=== PATIENT | male | born 1945 | race Caucasian/White ===

== ENCOUNTER 2019-07-17 12:10 | Outpatient (CLI) | payer OTHER, SELFPAY ==
--- NOTE | 2019-07-17 12:45 | USCV_ITS ---
Anderson Calvert Age: 73 Gender: M : 1945 Exam Date: 07/17/2019 12:39 Ordering Phys: Haroon Herr MD ([email or web address]) Technologist: Marisa Granda Exam Location: [facility] Indication: CHEST PAIN BP: 134 / 66 HR: 53 Rhythm: Sinus Technical Quality: Adequate MEASUREMENTS (Male / Female) Normal Values 2D ECHO LV Diastolic Diameter PLAX 3.8 cm 4.2 - 5.9 / 3.9 - 5.3 cm LV Systolic Diameter PLAX 2.6 cm LV Chamber Size 3.4 cm IVS Diastolic Thickness 1.3 cm 0.6 - 1.0 / 0.6 - 0.9 cm IVS Systolic Thickness 1.7 cm LVPW Diastolic Thickness 1.5 cm 0.6 - 1.0 / 0.6 - 0.9 cm LVPW Systolic Thickness 1.9 cm RV Chamber Size 3.6 cm LVOT Diameter 2.1 cm LV Ejection Fraction 2D Teich 57.3 % LV Ejection Fraction MOD 2C 38.2 % LV Ejection Fraction 2C AL 38.3 % LA Diameter 4.7 cm LA Width 3.7 cm LA Height 4.6 cm RA Width 2.3 cm RA Height 2.7 cm Aorta at Sinotubular Diameter 2.9 cm M-MODE LV Diastolic Diameter MM 6.2 cm 4.2 - 5.9 / 3.9 - 5.3 cm LV Systolic Diameter MM 3.8 cm LV Ejection Fraction MM Teich 68.7 % IVS Diastolic Thickness MM 0.8 cm 0.6 - 1.0 / 0.6 - 0.9 cm IVS Systolic Thickness MM 1.0 cm LVPW Diastolic Thickness MM 1.0 cm 0.6 - 1.0 / 0.6 - 0.9 cm LVPW Systolic Thickness MM 1.3 cm Aortic Annulus Diameter 3.6 cm LA Ao Ratio MM 1.3 MV E Point Septal Separation 0.8 cm DOPPLER AV Peak Velocity 143.0 cm/s LVOT Peak Velocity 127.0 cm/s AV Area Cont Eq vti 2.9 cm squared AV Area Cont Eq pk 3.0 cm squared MV Area PHT 2.5 cm squared Mitral E to A Ratio 1.0 MV E' Velocity 11.0 cm/s Mitral E to MV E' Ratio 10.0 Mitral E to LV E' Lateral Ratio 8.6 Mitral E to LV E' Septal Ratio 12.1 TR Peak Velocity 272.0 cm/s TR Peak Gradient 29.7 mmHg TR Mean Velocity 184.4 cm/s TR Mean Gradient 18.2 mmHg TR Velocity Time Integral 85.3 cm TV Peak E Velocity 86.0 cm/s Right Atrial Pressure 3.0 mmHg Pulmonary Artery Systolic Pressu 32.6 mmHg PV Peak Velocity 96.0 cm/s RV Acceleration Time 0.2 s RV Ejection Time 0.4 s RV AcT/ET 0.5 FINDINGS Left Ventricle Normal left ventricular cavity size. Normal left ventricular systolic function. No regional wall motion abnormalities. Left ventricular ejection fraction is estimated at 68 %. Grade II/IV diastolic dysfunction, moderately elevated filling pressures. Right Ventricle The right ventricle is normal in size and function. Right Atrium The right atrium is normal in size. Left Atrium The left atrium is normal in size. Mitral Valve Mildly thickened mitral valve. No mitral valve stenosis. Trace mitral valve regurgitation. Aortic Valve Aortic valve sclerosis without stenosis or regurgitation. Tricuspid Valve Structurally normal tricuspid valve without significant stenosis or regurgitation. Pulmonary artery systolic pressure is normal. Pulmonic Valve Structurally normal pulmonic valve without significant stenosis. There is no pulmonic regurgitation. Pericardium Normal pericardium without effusion. Aorta Normal ascending aorta dimension. CONCLUSIONS 1-Normal left ventricular cavity size. Normal left ventricular systolic function. No regional wall motion abnormalities. Left ventricular ejection fraction is estimated at 68 %. Grade II/IV diastolic dysfunction, moderately elevated filling pressures. 2-There is no pericardial effusion. 3-No significant valve abnormalities. 4-Pulmonary artery systolic pressure is within normal limits. 5-There are no prior echocardiogram studies to compare. Haroon Herr MD (Electronically Signed) Final Date: 18 July 2019 17:33 S
== END 2019-07-17 12:11 | disposition home or self-care (01) ==
LOC: US 12:16
PROVIDERS: Family Provider Internal Medicine; PCP Internal Medicine; Visit Provider Internal Medicine Cardiovascular Disease
DX: R06.02 Shortness of breath (principal); R07.9 Chest pain, unspecified; I10 Essential (primary) hypertension
CPT/HCPCS: 93306

== ENCOUNTER 2019-07-27 08:12 | Outpatient (CLI) | payer OTHER, SELFPAY ==
[2019-07-27 08:28] VITALS: BMI 29.2
--- NOTE | 2019-07-27 08:31 | NMCV_ITS ---
NM beba perf SPECT r/s* [id number] Anderson Calvert Age: 73 Gender: M : 1945 Exam Date: 07/27/2019 09:25 Ordering Phys: Haroon Herr MD ([email or web address]) Technologist: LEANNA Mccloud Exam Location: [facility] Indications: ABNORMAL EKG STRESS TEST [facility] IMAGE PROTOCOL Rest/Stress 1 Exercise Day Radiopharmaceutical Dose (mCi) Administration Site Administered by Rest: Tc-99m 10.9 IV LEANNA Mccloud Sestamibi Stress:Tc-99m 32.5 IV LEANNA Brody Sestamibi Rest: 27-Jul-2019 60 Discovery 630 Stress: 27-Jul-2019 30 Discovery 630 Radiopharmaceutical was injected at 86 % maximum heart rate. Images obtained in supine and prone position. SPECT RESULTS Technical Quality: Excellent Raw Data Analysis: Normal Image Corrections: No attenuation or motion correction applied Summed Stress Score: 4 Summed Rest Score: 8 Summed Difference Score: 1 PERFUSION FINDINGS SPECT images demonstrate homogeneous tracer distribution throughout the myocardium. FUNCTIONAL RESULTS (calculated via Gated SPECT) Stress Image LV EF (%): 62 Stress EDV (mL):90 TID: 1.23 Stress ESV (mL):34 Rest Image LV EF (%): 60 FUNCTIONAL FINDINGS: There is normal left ventricular systolic function. IMPRESSIONS Myocardial perfusion imaging is normal and low probability for obstructive coronary disease. TID ratio is elevated could be due to left ventricle hypertrophy/subendocardial ischemia in the absence of other parameters. EKG segment will be documented separately.. Haroon Herr MD (Electronically Signed) Final Date: 28 July 2019 11:45 S
--- NOTE | 2019-07-27 08:31 | ECG_ITS ---
NAME OF STUDY: EXERCISE SESTAMIBI STRESS TEST INDICATION: Abnormal EKG; Essential HTN EXERCISE DATA: The patient was exercised by Lazarus protocol. Baseline heart rate was 58 beats per minute. Baseline blood pressure was 165/93 millimeters of mercury. Target heart rate was 145 beats per minute. Maximum heart rate achieved was 135, which was 93 % of the target heart rate. Maximum blood pressure was 202/105 millimeters of mercury. Total exercise time was 5 minutes 30 seconds. Maximum METs achieved was 7, maximum VO2 was 24.5. The reason for ending the test was maximum effort achieved. The patient complained of shortness of breath during the stress test, which then resolved at the end of the test. ELECTROCARDIOGRAM: BASELINE: Showed sinus bradycardia, left axis, interventricular conduction delay, possible lead placement with poor R wave progression in the anterolateral leads EXERCISE: At the peak exercise level, No significant ST-T changes suggestive of ischemia noted. RECOVERY: During the recovery period, heart rate dropped appropriately. No significant ST-T changes in the recovery suggestive of ischemia noted. CONCLUSION: 1. Exercise capacity fair. 2. Heart rate response was appropriate. 3. Blood pressure response was hypertensive. 4. Symptoms not suggestive of ischemia. 5. Electrocardiogram portion of the stress test was not suggestive of ischemia. 6. Nuclear scan will be documented separately. Please note that due to underachievement of METs specificity and sensitivity of the EKG portion of the stress test will be low Electronically Signed On 08-01-2019 21:41:29 [employer] by Haroon Herr M.D. [email or web address]
--- NOTE | 2019-07-27 09:59 | SUR.PREOP ---
Patient reports no pain or discomfort prior to the start of the procedure.
[2019-07-27 10:22] VITALS: BP 148/89; PULSE 70
== END 2019-07-27 08:13 | disposition home or self-care (01) ==
LOC: CDL 08:13
PROVIDERS: Family Provider Internal Medicine; PCP Internal Medicine; Visit Provider Internal Medicine Cardiovascular Disease
DX: I10 Essential (primary) hypertension (principal); R94.31 Abnormal electrocardiogram [ECG] [EKG]
CPT/HCPCS: 78452; 93017; A9500

== ENCOUNTER → 2020-07-21 10:51 | Outpatient (BNVA) | payer OTHER, SELFPAY | PROVIDERS: Family Provider Internal Medicine; PCP Family Medicine; Referring Provider Family Medicine; Visit Provider Urology | DX: N40.0 Benign prostatic hyperplasia without lower urinary tract symptoms (principal); Q64.6 Congenital diverticulum of bladder; Q60.0 Renal agenesis, unilateral; N40.1 Benign prostatic hyperplasia with lower urinary tract symptoms | CPT/HCPCS: 81003 ==

== ENCOUNTER → 2020-08-07 09:04 | Outpatient (BNVA) | payer OTHER, SELFPAY | PROVIDERS: Family Provider Internal Medicine; PCP Family Medicine; Referring Provider Family Medicine; Visit Provider Specialist | DX: M25.511 Pain in right shoulder (principal) | CPT/HCPCS: 73030 ==

== ENCOUNTER → 2021-08-04 15:10 | Outpatient (BNVA) | payer OTHER, SELFPAY | PROVIDERS: Family Provider Internal Medicine; PCP Nurse Practitioner Family; Visit Provider Nurse Practitioner Family | DX: R05.9 Cough, unspecified (principal); Z20.822 Contact with and (suspected) exposure to COVID-19 | CPT/HCPCS: 87635 ==

== ENCOUNTER → 2021-12-02 15:00 | Outpatient (BNVA) | payer OTHER, SELFPAY | PROVIDERS: Family Provider Internal Medicine; PCP Family Medicine; Visit Provider Internal Medicine | DX: R06.00 Dyspnea, unspecified (principal); E78.5 Hyperlipidemia, unspecified; I10 Essential (primary) hypertension | CPT/HCPCS: 99213; 99214 ==

== ENCOUNTER 2022-01-22 08:41 | Outpatient (CLI) | payer OTHER, SELFPAY ==
--- NOTE | 2022-01-22 09:30 | USCV_ITS ---
Anderson Calvert Age: 76 Gender: M : 1945 Exam Date: 01/22/2022 09:03 Ordering Phys: Ant Brantley M.D ([email or web address]) Technologist: Frieda Sharma Exam Location: [facility] [place] Indication: HTN, SOB BP: 130 / 88 HR: 54 Rhythm: Sinus Technical Quality: Adequate MEASUREMENTS (Male / Female) Normal Values 2D ECHO LV Diastolic Diameter PLAX 4.0 cm 4.2 - 5.9 / 3.9 - 5.3 cm LV Systolic Diameter PLAX 2.4 cm IVS Diastolic Thickness 1.3 cm 0.6 - 1.0 / 0.6 - 0.9 cm IVS Systolic Thickness 1.6 cm LVPW Diastolic Thickness 1.1 cm 0.6 - 1.0 / 0.6 - 0.9 cm LVPW Systolic Thickness 2.1 cm LVOT Diameter 2.1 cm LV Ejection Fraction 2D Teich 71.7 % LV Ejection Fraction MOD 2C 69.1 % LV Ejection Fraction 2C AL 70.9 % LA Diameter 3.4 cm LA Width 2.3 cm LA Height 4.6 cm RA Width 2.1 cm RA Height 3.6 cm Aorta at Sinotubular Diameter 2.9 cm M-MODE MV E Point Septal Separation 0.8 cm DOPPLER AV Peak Velocity 104.0 cm/s LVOT Peak Velocity 96.0 cm/s AV Area Cont Eq vti 3.3 cm squared AV Area Cont Eq pk 3.1 cm squared MV Peak Velocity 93.0 cm/s MV Area PHT 2.6 cm squared Mitral E to A Ratio 0.7 MV E' Velocity 38.5 cm/s Mitral E to MV E' Ratio 10.8 Mitral E to LV E' Lateral Ratio 7.8 Mitral E to LV E' Septal Ratio 18.0 TR Peak Velocity 173.0 cm/s TR Peak Gradient 12.0 mmHg Right Atrial Pressure 3.0 mmHg Pulmonary Artery Systolic Pressu 15.0 mmHg PV Peak Velocity 41.0 cm/s RV Acceleration Time 0.1 s RV Ejection Time 0.3 s RV AcT/ET 0.3 FINDINGS Left Ventricle Normal left ventricular size. LV systolic function is normal with EF of 55-60%. No regional wall motion abnormalities. Grade 1 diastolic dysfunction. Right Ventricle The right ventricle is normal in size and function. Right Atrium The right atrium is normal in size. Left Atrium The left atrium is normal in size. Mitral Valve Structurally normal mitral valve without significant stenosis or prolapse. There is mild mitral regurgitation. Aortic Valve Structurally normal aortic valve without significant sclerosis or stenosis. There is no aortic regurgitation. Tricuspid Valve Trace tricuspid regurgitation. Insufficient TR jet to calculate RVSP. Pulmonic Valve Not well-visualized Pericardium Normal pericardium without effusion. Aorta Normal ascending aorta dimension. IVC CONCLUSIONS LV systolic function is normal with EF of 55 to 60%. Grade 1 diastolic dysfunction. Mild mitral regurgitation. Trace tricuspid regurgitation. Compared to prior echocardiogram from 07/17/2019, no significant changes are seen Ant Brantley MD (Electronically Signed) Final Date: 31 January 2022 12:30 S
== END 2022-01-22 08:42 | disposition home or self-care (01) ==
LOC: RAD 08:42
PROVIDERS: Family Provider Internal Medicine; PCP Family Medicine; Visit Provider Internal Medicine
DX: I10 Essential (primary) hypertension (principal); R06.02 Shortness of breath; I08.1 Rheumatic disorders of both mitral and tricuspid valves
CPT/HCPCS: 93306

== ENCOUNTER → 2022-03-04 09:52 | Outpatient (BNVA) | payer OTHER, SELFPAY | PROVIDERS: Family Provider Internal Medicine; PCP Family Medicine; Visit Provider Internal Medicine Pulmonary Disease | DX: R06.00 Dyspnea, unspecified (principal); R06.2 Wheezing; Z87.891 Personal history of nicotine dependence; Z57.9 Occupational exposure to unspecified risk factor | CPT/HCPCS: 99204 ==

== ENCOUNTER 2022-04-20 07:50 | Outpatient (CLI) | payer OTHER, SELFPAY ==
[2022-04-20 08:23] LABS: Basophils % 0.5 %; Eosinophils # 0.3 10^3/uL (0.0-0.8); Eosinophils % 4.3 %; Hematocrit 46.4 % (42.0-52.0); Hemoglobin 15.5 g/dL (11.7-16.6); Lymphocytes # 1.4 10^3/uL (0.8-4.8); Lymphocytes % 22.3 %; Mean Corpuscular HGB Conc 33.4 g/dL (30.0-36.0); Mean Corpuscular Hemoglobin 31.1 pg (28.0-34.0); Mean Platelet Volume 9.6 fL (7.4-10.4); Monocytes # 0.4 10^3/uL (0.2-0.9); Monocytes % 6.4 %; Neutrophils # 4.01 10^3/uL (1.8-7.7); Neutrophils % 66.2 %; Nucleated Red Blood Cells % 0 %; Platelet Count 183 10^3/cmm (130-400); Red Blood Count 4.99 10^6/uL (4.1-5.3); Red Cell Distribution Width 12.9 % (12.1-15.1); White Blood Count 6.1 10^3/uL (4.0-10.0)
[2022-04-20 08:41] LABS: Alanine Aminotransferase 18 U/L (0-41); Alkaline Phosphatase 94 U/L (40-130); Anion Gap 13.6 (5-19); Aspartate Amino Transferase 26 U/L (0-40); Blood Urea Nitrogen 29 mg/dL (8-23); Calcium 9.7 mg/dL (8.5-10.5); Carbon Dioxide 27 mmol/L (22-29); Chloride 102 mmol/L (98-107); Globulin 3.1 g/dL (1.3-4.6); Glucose 78 mg/dL (65-115); Osmolality Calculated 293 mOsm/kg (285-295); Potassium 3.6 mmol/L (3.5-5.1); Sodium 139 mmol/L (136-145); Total Bilirubin 0.9 mg/dL (0.15-1.2); Total Protein 7.1 g/dL (6.6-8.7)
[2022-04-21 17:28] LABS: Immunoglobulin E 333 kU/L (<OR=114)
[2022-04-22 20:32] LABS: Aspergillus Fumigatus, Igg Ab, 17.9 mg/L (<=102)
[2022-04-23 15:38] LABS: Alternaria Alternata (M6) Ige <0.10 kU/L; Alternaria Class 0; Bermuda Class 0; Bermuda Grass (G2) Ige <0.10 kU/L; Cat Dander (E1) Ige <0.10 kU/L; Cat Dander Class 0; Common Ragweed (Short) (W1) Ig <0.10 kU/L; D. Farinae Class 0; Dermatophagoides Class 0; Dermatophagoides Farinae (D2) <0.10 kU/L; Dermatophagoides Pteronyssinus <0.10 kU/L; Dog Dander (E5) Ige <0.10 kU/L; Dog Dander Class 0; Elm (T8) Ige 0.12 kU/L; Elm Class 0/1; English Plantain (W9) Ige <0.10 kU/L; English Plantain Class 0; House Dust (Greer) (H1) Ige <0.10 kU/L; House Dust (Hollister- Stier) <0.10 kU/L; House Dust Class 0; Immunoglobulin E 329 kU/L (<OR=114); Johnson Grass (G10) Ige <0.10 kU/L; Johnson Grass Cl 0; June Grass Class 0; June Grass(Kentucky Blue) (G8) <0.10 kU/L; Lamb'S Quarters (Goose Foot) 0.12 kU/L; Lamb'S Quarters Class 0/1; Maple (Box Elder) (T1) Ige <0.10 kU/L; Maple Class 0; Meadow Fescue (G4) Ige <0.10 kU/L; Meadow Fescue Class 0; Mucor Racemosus Class 0; Oak (T7) Ige <0.10 kU/L; Oak Class 0; Orchard Grass (Cocksfoot) (G3) <0.10 kU/L; Penicillium Class 0; Penicillium Notatum (M1) Ige <0.10 kU/L; Perennial Rye Grass (G5) Ige <0.10 kU/L; Perennial Rye Grass Class 0; Ragweeed Class 0; Rough Marsh Elder (W16) Ige 0.12 kU/L; Rough Marsh Elder Class 0/1; Sweet Vernal Class 0; Sweet Vernal Grass (G1) Ige <0.10 kU/L; Timothy Grass (G6) Ige <0.10 kU/L; Timothy Grass Class 0
== END 2022-04-20 07:51 | disposition home or self-care (01) ==
PROVIDERS: PCP Family Medicine; Visit Provider Internal Medicine Pulmonary Disease
DX: R06.00 Dyspnea, unspecified (principal); R06.2 Wheezing; R06.02 Shortness of breath
CPT/HCPCS: 36415; 80053; 82785; 85025; 86003; 94010; 94618; 94726; 94729

== ENCOUNTER → 2022-08-09 15:19 | Outpatient (BNVA) | payer OTHER, SELFPAY | PROVIDERS: PCP Family Medicine; Visit Provider Internal Medicine Pulmonary Disease | DX: J44.9 Chronic obstructive pulmonary disease, unspecified (principal); R06.00 Dyspnea, unspecified; R94.2 Abnormal results of pulmonary function studies; J45.909 Unspecified asthma, uncomplicated; J82.83 Eosinophilic asthma; Z87.891 Personal history of nicotine dependence; Z57.9 Occupational exposure to unspecified risk factor | CPT/HCPCS: 99214 ==

== ENCOUNTER → 2023-05-09 12:43 | Outpatient (BNVA) | payer OTHER, SELFPAY | PROVIDERS: PCP Family Medicine; Visit Provider Internal Medicine Pulmonary Disease | DX: J82.83 Eosinophilic asthma (principal); R06.2 Wheezing; R94.2 Abnormal results of pulmonary function studies; J42 Unspecified chronic bronchitis | CPT/HCPCS: 99214 ==

== ENCOUNTER → 2023-06-21 15:21 | Outpatient (BNVA) | payer OTHER, SELFPAY | PROVIDERS: PCP Family Medicine; Visit Provider Dermatology | DX: D48.5 Neoplasm of uncertain behavior of skin (principal); L82.0 Inflamed seborrheic keratosis; D18.01 Hemangioma of skin and subcutaneous tissue; L81.4 Other melanin hyperpigmentation; L57.0 Actinic keratosis | CPT/HCPCS: 11102; 17000; 17110; 99203 ==

== ENCOUNTER → 2023-07-12 09:16 | Outpatient (BNVA) | payer OTHER, SELFPAY | PROVIDERS: PCP Family Medicine; Visit Provider Dermatology | DX: C44.519 Basal cell carcinoma of skin of other part of trunk (principal); L82.0 Inflamed seborrheic keratosis | CPT/HCPCS: 12032; 17110; 17313 ==

== ENCOUNTER → 2023-08-03 09:48 | Outpatient (BNVA) | payer OTHER, SELFPAY | PROVIDERS: PCP Family Medicine; Visit Provider Dermatology | DX: D48.5 Neoplasm of uncertain behavior of skin (principal) | CPT/HCPCS: 11403; 12034 ==

== ENCOUNTER → 2023-08-17 09:37 | Outpatient (BNVA) | payer OTHER, SELFPAY | PROVIDERS: PCP Family Medicine; Visit Provider Dermatology | DX: Z48.02 Encounter for removal of sutures (principal) | CPT/HCPCS: 99212 ==

== ENCOUNTER → 2024-02-20 08:44 | Outpatient (BNVA) | payer OTHER, SELFPAY | PROVIDERS: PCP Family Medicine; Visit Provider Nurse Practitioner Family | DX: L57.0 Actinic keratosis (principal); L82.1 Other seborrheic keratosis; D18.01 Hemangioma of skin and subcutaneous tissue; Z85.828 Personal history of other malignant neoplasm of skin | CPT/HCPCS: 17000; 99213 ==

== ENCOUNTER 2024-04-09 13:17 | Outpatient (CLI) | payer OTHER, SELFPAY ==
[2024-04-09 13:54] LABS: Basophils % 0.6 %; Eosinophils # 0.3 10^3/uL (0.0-0.8); Eosinophils % 4.1 %; Hematocrit 46.4 % (37-53); Lymphocytes # 1.4 10^3/uL (0.8-4.8); Lymphocytes % 19.9 %; Mean Corpuscular HGB Conc 33.6 g/dL (30-55); Mean Corpuscular Hemoglobin 31.1 pg (27-33); Mean Corpuscular Volume 92.4 fl (82-101); Mean Platelet Volume 9.7 fL (7.4-10.4); Monocytes # 0.3 10^3/uL (0.2-0.9); Monocytes % 4.6 %; Neutrophils # 4.96 10^3/uL (1.8-7.7); Neutrophils % 70.5 %; Nucleated Red Blood Cells % 0 %; Platelet Count 209 10^3/cmm (157-399); Red Blood Count 5.02 10^6/uL (3.85-5.65); Red Cell Distribution Width 13.2 % (12.1-15.1); White Blood Count 7.03 10^3/uL (3.29-11.43)
[2024-04-09 14:14] LABS: Albumin Level 3.8 g/dL (3.5-5.2); Blood Urea Nitrogen 23 mg/dL (8-23); Calcium 8.8 mg/dL (8.5-10.5); Calcium 8.9 mg/dL (8.5-10.5); Carbon Dioxide 24 mmol/L (22-29); Chloride 104 mmol/L (98-107); Glucose 144 mg/dL (65-115); Phosphorus 2.6 mg/dL (2.5-4.5); Sodium 137 mmol/L (136-145)
[2024-04-09 14:15] LABS: Creatinine Urine, Random 86 mg/dL (39-259); Microalbum Creatinine Ratio Ur 12 mg/dL (0-20); Microalbumin Random Urine 1 ug/dL (0-20)
[2024-04-09 14:16] LABS: Anion Gap 13.6 (5-19); Potassium 4.6 mmol/L (3.5-5.1)
[2024-04-09 14:21] LABS: Parathyroid Hormone 77.8 pg/mL (15-65)
[2024-04-09 17:00] LABS: 25 Hydroxy Vitamin D 23 ng/mL (30-100)
== END 2024-04-09 13:18 | disposition home or self-care (01) ==
PROVIDERS: PCP Family Medicine; Visit Provider Registered Nurse
DX: N18.2 Chronic kidney disease, stage 2 (mild) (principal)
CPT/HCPCS: 36415; 80069; 82044; 82306; 82310; 83970; 85025

== ENCOUNTER → 2024-08-20 10:41 | Outpatient (BNVA) | payer OTHER, SELFPAY | PROVIDERS: PCP Family Medicine; Visit Provider Nurse Practitioner Family | DX: L82.1 Other seborrheic keratosis (principal); D22.5 Melanocytic nevi of trunk; Z08 Encounter for follow-up examination after completed treatment for malignant neoplasm; Z85.828 Personal history of other malignant neoplasm of skin; L57.0 Actinic keratosis | CPT/HCPCS: 17000; 99213 ==

== ENCOUNTER 2024-12-24 08:23 | Oncology outpatient (recurring) (ONCR) | payer OTHER, SELFPAY | END 2025-01-10 23:59 | disposition home or self-care (01) | PROVIDERS: PCP Family Medicine; Visit Provider Internal Medicine Medical Oncology | DX: D47.2 Monoclonal gammopathy (principal); I82.90 Acute embolism and thrombosis of unspecified vein; R03.0 Elevated blood-pressure reading, without diagnosis of hypertension; R59.9 Enlarged lymph nodes, unspecified; Z87.891 Personal history of nicotine dependence; Z79.01 Long term (current) use of anticoagulants | CPT/HCPCS: 99205 ==

== ENCOUNTER → 2025-02-18 13:16 | Outpatient (BNVA) | payer OTHER, SELFPAY | PROVIDERS: PCP Family Medicine; Visit Provider Nurse Practitioner Family | DX: L82.1 Other seborrheic keratosis (principal); D69.2 Other nonthrombocytopenic purpura; Z08 Encounter for follow-up examination after completed treatment for malignant neoplasm; Z85.828 Personal history of other malignant neoplasm of skin; D48.5 Neoplasm of uncertain behavior of skin; L57.0 Actinic keratosis | CPT/HCPCS: 17000; 69100; 99213 ==

== ENCOUNTER 2025-04-01 12:57 | Oncology outpatient (recurring) (ONCR) | payer OTHER, SELFPAY ==
--- NOTE | 2025-03-25 12:30 | CTR_ITS ---
PROCEDURE INFORMATION: Exam: CT Chest With Contrast; Diagnostic Exam date and time: 03/25/2025 12:59 PM Age: 79 years old Clinical indication: Abnormal findings; Abnormal radiologic finding of the abdomen; Radiologic exam and body structure: Cta chest; Lung mass or nodule; Not specified; Prior surgery; Surgery date: 6+ months; Surgery type: Small intestines; Bleeding ulcer, enlarged lymph nodes seen on CT at [facility]. ; Additional info: [employer] TECHNIQUE: Imaging protocol: Diagnostic computed tomography of the chest with contrast. Radiation optimization: All CT scans at this facility use at least one of these dose optimization techniques: automated exposure control; mA and/or kV adjustment per patient size (includes targeted exams where dose is matched to clinical indication); or iterative reconstruction. Contrast material: OMNI 350; Contrast volume: 100 ml; Contrast route: INTRAVENOUS (IV); COMPARISON: CT angio chest [id number] 10/18/2021 7:34 AM RADIATION DOSE METRICS: Total DLP (mGy-cm): 889.58 FINDINGS: Thyroid: Prominent/nodularity of the right thyroid gland is again noted. Lungs: Mild bilateral lower lobe atelectasis which is mostly dependent. Pleural spaces: Unremarkable. No pneumothorax. No pleural effusion. Heart: Unremarkable. No cardiomegaly. No pericardial effusion. Coronary arteries: Moderate coronary calcifications. Lymph nodes: Unremarkable. No enlarged lymph nodes. Vasculature: Unremarkable. No aortic aneurysm. Bones/joints: Unremarkable. No acute fracture. Soft tissues: Unremarkable. PROCEDURE INFORMATION: Exam: CT Abdomen And Pelvis With Contrast Exam date and time: 03/25/2025 12:59 PM Age: 79 years old Clinical indication: Abnormal findings; Abnormal radiologic finding of the abdomen; Radiologic exam and body structure: Cta chest; Lung mass or nodule; Not specified; Prior surgery; Surgery date: 6+ months; Surgery type: Small intestines; Bleeding ulcer, enlarged lymph nodes seen on CT at [facility]. ; Additional info: [employer] TECHNIQUE: Imaging protocol: Computed tomography of the abdomen and pelvis with contrast. Radiation optimization: All CT scans at this facility use at least one of these dose optimization techniques: automated exposure control; mA and/or kV adjustment per patient size (includes targeted exams where dose is matched to clinical indication); or iterative reconstruction. Contrast material: OMNI 350; Contrast volume: 100 ml; Contrast route: INTRAVENOUS (IV); COMPARISON: CT abdomen pelvis w con* [id number] 05/29/2020 10:38 AM RADIATION DOSE METRICS: Total DLP (mGy-cm): 889.58 FINDINGS: Diaphragm: Small hiatal hernia. Liver: A few small hypodensities in the liver are too small to characterize but not appreciably changed. Gallbladder and biliary ducts: Normal. No calcified stones. No ductal dilation. Pancreas: 8 x 10 mm cystic lesion in the uncinate process of the pancreas is again noted without appreciable change. Spleen: Normal. No splenomegaly. Adrenal glands: Normal. No mass. 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 Stomach and bowel: Colonic diverticulosis. Appendix: No evidence of appendicitis. Intraperitoneal space: Unremarkable. No free air. No significant fluid collection. Vasculature: Unremarkable. No abdominal aortic aneurysm. Lymph nodes: Unremarkable. No enlarged lymph nodes. Urinary bladder: Small right posterior bladder diverticulum. Reproductive: Unremarkable as visualized. Bones/joints: Unremarkable. No acute fracture. Soft tissues: Unremarkable. CT/CT chest abdpel w/*[id number] IMPRESSION: No acute findings. IMPRESSION: 1. No acute findings. 2. Other findings as detailed above.
[2025-03-25] MEDS: iohexol 350 mg/mL 500 mL Btl (per mL) PO (12:49)
[2025-03-25 12:56] LABS: Blood Urea Nitrogen 22 mg/dL (8-23)
[2025-03-25] MEDS: iohexol 350 mg/mL 500 mL Btl (per mL) IV (13:03)
== END 2025-04-12 23:59 | disposition home or self-care (01) ==
PROVIDERS: PCP Family Medicine; Visit Provider Internal Medicine Medical Oncology
DX: D47.2 Monoclonal gammopathy (principal); I82.90 Acute embolism and thrombosis of unspecified vein; R59.9 Enlarged lymph nodes, unspecified; R03.0 Elevated blood-pressure reading, without diagnosis of hypertension; Z87.891 Personal history of nicotine dependence; Z79.01 Long term (current) use of anticoagulants; Z79.899 Other long term (current) drug therapy
CPT/HCPCS: 71260; 74177; 82565; 84520; 99214

== ENCOUNTER 2025-04-15 11:07 | Outpatient (CLI) | payer OTHER, SELFPAY ==
[2025-04-15 12:46] LABS: Hematocrit 46.2 % (37-53); Hemoglobin 14.60 g/dL (11.27-16.99); Mean Corpuscular HGB Conc 31.6 g/dL (30-55); Mean Corpuscular Hemoglobin 30.3 pg (27-33); Mean Corpuscular Volume 95.9 fl (82-101); Nucleated Red Blood Cells % 0 %; Platelet Count 170 10^3/cmm (157-399); Red Blood Count 4.82 10^6/uL (3.85-5.65); White Blood Count 5.82 10^3/uL (3.29-11.43)
[2025-04-15 13:06] LABS: Albumin Level 3.9 g/dL (3.5-5.2); Blood Urea Nitrogen 18 mg/dL (8-23); Calcium 9.0 mg/dL (8.5-10.5); Carbon Dioxide 23 mmol/L (22-29); Chloride 107 mmol/L (98-107); Glucose 86 mg/dL (65-115); Sodium 140 mmol/L (136-145)
[2025-04-15 13:07] LABS: Calcium 9.0 mg/dL (8.5-10.5)
[2025-04-15 13:11] LABS: Creatinine Urine, Random 57 mg/dL (39-259); Microalbum Creatinine Ratio Ur 18 mg/dL (0-20)
[2025-04-15 13:45] LABS: Anion Gap 14.2 (5-19); Potassium 4.2 mmol/L (3.5-5.1)
== END 2025-04-15 11:08 | disposition home or self-care (01) ==
PROVIDERS: PCP Family Medicine; Visit Provider Registered Nurse
DX: E55.9 Vitamin D deficiency, unspecified (principal); N18.2 Chronic kidney disease, stage 2 (mild)
CPT/HCPCS: 36415; 80069; 82044; 82306; 82310; 83970; 85025